=== PATIENT | female | born 1985 ===

== ENCOUNTER 2025-04-20 11:21 | Outpatient (REF) | payer SELFPAY ==
--- OUTSIDE RECORDS SUMMARY | 2025-04-20 14:39 | XMS_ITS | Encounter Summary ---
Author Organization [employer] Address [address] [place] [address] Care Team Providers Care Evp General Counsel Name Role Phone Unavailable Primary Care Provider Unavailabl e Reason for Visit * Reason Onset Date Comments CHARTPREP 04/17/2025 Encounter Details Date Type Department Care Team ([facility] st Contact Info) Description 04/17/2025 Telephone [facility] MED[facility] [address] [place] [address] Kameron Sharp MA CHARTPREP Social History Tobacco Use Types Packs/Day Years Used Date Smoking Tobacco: Never Passive Smoke Exposure: Never Smokeless Tobacco: Never Alcohol Use Standard Drinks/Week Comments Yes 0 (1 standard drink = 0.6 oz pur e alcohol) Overall Financial Resource Strain (CARDIA) Answe r Date Recorded How hard is it for you to pa y for the very basics like food, housing, medical care, and heating? Not hard at all 04/06/2023 Alcohol Answer Date Recorded How often do you have a drink containing alcohol ? 2 03/20/2025 How many drinks containing a lcohol do you have on a typical day when you are drinking? 1 03/20/2025 How often do you have six or more drinks on one occasion? 0 03/20/2025 Depression Answer Date Recorded Patient Health Questionnaire-9 Score 2 03/20/2025 Patient Health Questionnaire-9 Score 2 03/20/2025 Last PHQ-9: Questionnaire Data Not on file 0 03/20/2025 Housing Stability Answer Date Recorded What is your housing situation today? I have [facility] 03/20/[address] you li ve. Do you have problems with any of the following? None of the above 03/20/2025 Food Insecurity Answer Date Recorded Within the past 12 months, y ou worried that your food would run out before you got money to buy more: Never True 03/20/2025 Within the past 12 months,th e food you bought just didn't last and you didn't have enough money to get more: Never True 07/2025 Transportation Answer Date Recorded In the past 12 months, has l ack of transportation kept you from medical appts, meetings, work or from getting things needed for daily living? I am not sure 03/20/2025 Intimate Partner Violence Answer Date R ecorded Within the last year, have y ou been afraid of your partner or ex-partner? 2 04/06/2023 Within the last year, have y ou been humiliated or emotionally abused in other ways by your partner or ex-partner? 2 04/06/2023 Physically Abused Not on file 04/06/2023 Sexually Abused Not on file 04/06/2023 Utilities Answer Date Recorded In the past 12 months, has t he electric, gas, oil or water company threatened to shut off services in your home? 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 Not on file Not on file documented as of this encounter Miscellaneous Notes * Telephone Encounter - Kameron Sharp MA - 04/17/2025 10:10 AM EDT Chart Prep Labs: done 12/28/23 Lab order Images: done Referrals: eye care order with unknown date Vaccines due: Covid, Flu, and HPV Screenings: not applicable Overdue care gaps: Oral health screening documented in this encounter Plan of Treatment Not on file documented as of this encounter Visit Diagnoses Not on filedocumented in this encounter Additional Health Concerns Assessment Noted Time PHQ-9 Depression Total Score: 2 03/20/20 25 10:52 AM EDT documented as of this encounter
[2025-04-20 15:32] LABS: Bacterial Vaginosis PCR NEGATIVE (Negative); Candida Group PCR NOT DETECTED (Not Detect); Candida glab krusei PCR NOT DETECTED (Not Detect); Trichomonas vaginalis PCR NOT DETECTED (Not Detect)
[2025-04-20 16:04] LABS: CT PCR NOT DETECTED (Not Detect.); NG PCR NOT DETECTED (Not Detect.)
== END 2025-04-20 11:22 | disposition home or self-care (01) ==
LOC: HO.LNP 11:21
PROVIDERS: Visit Provider Nurse Practitioner
DX: Z11.3 Encounter for screening for infections with a predominantly sexual mode of transmission (principal); Z11.8 Encounter for screening for other infectious and parasitic diseases; N89.8 Other specified noninflammatory disorders of vagina
CPT/HCPCS: 81515; 87491; 87591

== ENCOUNTER 2025-08-19 15:28 | Outpatient (REF) | payer MEDICAID, SELFPAY ==
--- NOTE | ~2025-08-19 | US_ITS ---
EXAMINATION: US PELVIS CLINICAL INFORMATION: Amenorrhea COMPARISON: None available. TECHNIQUE: Ultrasound of the pelvis is performed using both transabdominal and transvaginal transducers along with Doppler. Transvaginal imaging is performed due to inadequate visualization transabdominally. FINDINGS: Uterus: The uterus is anteflexed and measures 7.7 x 3.4 x 5.2 cm. The double wall endometrial thickness is 3 mm. The uterus is smooth in contour and has normal myometrial echogenicity. No visible fibroid. Adnexa: Both ovaries are visualized. There is normal color flow to the adnexa. There is no ovarian torsion. There is no pelvic ascites or fluid collection. Right ovary measures 4.2 x 2.0 x 2.4 cm. Left ovary measures 5.3 x 2.0 x 2.3 cm. On transabdominal imaging, there is a 9 mm echogenic focus without posterior acoustic shadowing or enhancement. It likely represents small fatty lesion such as a dermoid. US/US pelvic and transvaginal IMPRESSION: Unremarkable pelvic ultrasound. Probable 9 mm dermoid of the left ovary. Electronically signed by: Bryant Vicente MD 08/19/2025 04:42 PM EST
--- OUTSIDE RECORDS SUMMARY | 2025-08-20 00:08 | XMS_ITS | Clinical Summary ---
Author Organization [employer] Address [address] [place] [address] [address] [place] [address] Care Team Providers Care Adjunct Political Science Instructor Name Role Phone Essence Ornelas NP Primary Care Provider [phone] Allergies Active Allergy Reactions Criticality Noted Date Comments Pineapple Swelling High 03/20/2025 Mouth and generalized swelling. 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 Patient reports previous diagnosis of Polycystic ovarian syndrome which could be possible etiology. -Discussed obtaining pelvic ultrasound but deferred due to financial concerns; will place orders if patient reconsiders. - Advised to monitor menstrual cycles; if amenorrhea persists for 2-3 months, will consider progesterone therapy to prevent endometrial hyperplasia. -Advised follow-up in 4 months or sooner if menstrual irregularity recurs. Orders: Us Pelvis complete; Future US Pelvis Transvaginal; Future TSH W/Reflex to FT4; Future FSH; Future Prolactin; Future LH; Future Assessment & Plan (05/15/2025 12:53 PM EDT): -likely due to PCOS -scheduled follow-up for further discussion due to time constraint Encounters Date Type Department Care Team Description 07/30/2025 Telephone [facility] MEDICINE [address] [place] [address] Essence Ornelas NP October recall 06/24/2025 3:15 PM EDT Office Visit [facility] [address] [place] [address] Essence Ornelas NP Overweight (Primary Dx); Lump on neck; Secondary amenorrhea; Dietary counseling; Exercise counseling 06/24/2025 Travel 06/23/2025 Telephone [facility] MED[facility]INE [address] [place] [phone] Essence Ornelas NP Chartprep from Last 3 Months Immunizations Immunization Administration Dates Next Due Influenza injectable quadrivalent preservative f ree 12/05/2023,06/29/2022 Tdap 12/05/2023 Family History Medical History Relation Name Comments Arrhythmia Maternal Grandmother Diabetes Maternal Grandmother Hypertension Maternal Grandmother Brain cancer Mother Diabetes Mother Diabetes type II Mother's Sister Hypertension Mother's Sister Cancer Neg Hx Relation Name Status Comments Maternal Grandmother Mother Mother's Sister Social History Tobacco Use Types Packs/Day Years Used Date Smoking Tobacco: Never Passive Smoke Exposure: Never Smokeless Tobacco: Never Tobacco Cessation:Counseling Given: Not Answered Alcohol Use Standard Drinks/Week Comments Yes 0 [...] 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 Not on file Not on file Last Filed Vital Signs Vital Sign Reading Time Taken Comments Blood Pressure 120/82 06/24/2025 3:17 PM EDT Pulse 90 06/24/2025 3:17 PM EDT Temperature 36.9 C (98.4 F) 06/24/2025 3:17 PM EDT Respiratory Rate 22 06/24/2025 3:17 PM EDT Oxygen Saturation 99% 06/24/2025 3:17 PM EDT Inhaled Oxygen Concentration - - Weight 82.2 kg (181 lb 3.2 oz) 06/24/2025 3:17 P M EDT Height 167.6 cm (5' 6 ) 06/24/2025 3:17 PM EDT Body Mass Index 29.25 06/24/2025 3:17 PM EDT Plan of Treatment Upcoming Encounters Date Type Department Care Team (Late st Contact Info) Description 10/22/2025 9:30 AM EST Office Visit [facility]OM[facility] [address] [place], [place] [phone] Mary Carpenter, OD [address] [place] [address] 10/28/2025 3:15 PM EST Office Visit [facility] MEDICINE [address] [place] [address] Essence Ornelas NP [address] [place], [place] [phone] Health Maintenance Due Date Last Done Comments HIV Screening 1985 Family Planning (PISQ) 2002 HPV Vaccines (1 - 3-dose series) 2002 Hepatitis C Screening 2005 COVID-19 Vaccine (2 - 2024-2 6 season) 2025 09/17/2022 Influenza Vaccine (#1) 2025 , 06/29/2022 Alcohol/Substance Use Screening 03/20/2026 03/20/2025 Depression Screening 03/20/2026 03/20/2025, 03/20/2025 Disability Screening 03/20/2026 03/20/2025 SDOH Screening 03/20/2026 03/20/2025 Tobacco Screening 03/20/2026 03/20/2025 Cervical Cancer Screening 08/01/2027 HPV/Cotest 08/01/2027 07/25/2022 Pap Smear 08/01/2027 08/01/2022, 07/25/2022, 07/25/2022 DTaP/Tdap/Td Vaccines (2 - T d or Tdap) 12/04/2033 12/05/2023 Zoster Vaccines (1 of 2) 2037 RSV Patients and Patients Aged 60 years or older (1 - 1-dose 75+ series) 2062 HIB Vaccines Aged Out No longer eligi ble based on patient's age to complete this topic Hepatitis A Vaccines Aged Out No long er eligible based on patient's age to complete this topic Hepatitis B Vaccines Discontinued IPV Vaccines Aged Out No longer eligi ble based on patient's age to complete this topic Meningococcal B Vaccine Aged Out No l onger eligible based on patient's age to complete this topic Meningococcal Vaccine Aged Out No jerica mir eligible based on patient's age to complete this topic Pneumococcal Vaccine: Pediatrics (0 to 5 Years) and At-Risk Patients (6 to 49) Years Aged Out No longer eligible based on patient's age to complete this topic RSV under 20 months Aged Out No longe r eligible based on patient's age to complete this topic Rotavirus Vaccines Aged Out No longer eligible based on patient's age to complete this topic Procedures Procedure Name Priority Date/Time Associated Diagnosis Comments US PELVIS TRANSVAGINAL Routine 08/19/2025 4:03 PM EST Secondary amenorrhea PAP SMEAR Routine 08/01/2022 12:00 AM EST THINPREP IMAGING PAP AND HPV MRNA E6/E7 WITH REFLEX TO HPV 16,18/45 Routine 07/25/2022 12:00 AM EST from Last 3 Months or Most Recently Relevant to Health Maintenance Results * US Pelvis Transvaginal (08/19/2025 4:03 PM EST) Anatomical Region Laterality Modality Pelvis Ultrasound 08/19/2025 4:03 PM EST Narrative 08/19/2025 4:44 PM EST [place] [id number] Ultrasound Report Signed Patient: Gray Moreland MR#: [id number] 63 : 1985 Acct:[id number] Age/Sex: 40 / F ADM Date: 08/19/25 Loc: .[place] Attending Dr: Essence Ornelas Ordering Physician: Essence Ornelas Date of Service: 08/19/25 Procedure(s): US pelvic and transvaginal Accession Number(s): [id number] cc: Essence Ornelas Reason for Exam: amenorrhea EXAMINATION: US PELVIS CLINICAL INFORMATION: Amenorrhea COMPARISON: None available. TECHNIQUE: Ultrasound of the pelvis is performed using both transabdominal and transvaginal transducers along with Doppler. Transvaginal imaging is performed due to inadequate visualization transabdominally. FINDINGS: Uterus: The uterus is anteflexed and measures 7.7 x 3.4 x 5.2 cm. The double wall endometrial thickness is 3 mm. The uterus is smooth in contour and has normal myometrial echogenicity. No visible fibroid. Adnexa: Both ovaries are visualized. There is normal color flow to the adnexa. There is no ovarian torsion. There is no pelvic ascites or fluid collection. Right ovary measures 4.2 x 2.0 x 2.4 cm. Left ovary measures 5.3 x 2.0 x 2.3 cm. On transabdominal imaging, there is a 9 mm echogenic focus without posterior acoustic shadowing or enhancement. It likely represents small fatty lesion such as a dermoid. US/US pelvic and transvaginal IMPRESSION: Unremarkable pelvic ultrasound. Probable 9 mm dermoid of the left ovary. Electronically signed by: Bryant Vicente MD 08/19/2025 04:42 PM [facility] Dictated By: Bryant Vicente MD Signed By: <Electronically signed by Bryant Vicente MD in [place]> 08/19/25 1642 DD/ 1603 TD/TT: 08/19/25 1611 General Operations Manager: Procedure Note Donotuseinterpreter, Image - 08/19/2025 [place] [address] Ultrasound Report Signed Patient: Gray Moreland TMR#: [id number] 63 : 1985Acct:[id number] Age/Sex: 40 / FADM Date: 08/19/25 Loc: .[place] Attending Dr: Essence Ornelas Ordering Physician: Essence Ornelas Date of Service: 08/19/25 Procedure(s): US pelvic and transvaginal Accession Number(s): [id number] cc: Essence Ornelas Reason for Exam: amenorrhea EXAMINATION: US PELVIS CLINICAL INFORMATION: Amenorrhea COMPARISON: None available. TECHNIQUE: Ultrasound of the pelvis is performed using both transabdominal and transvaginal transducers along with Doppler. Transvaginal imaging is performed due to inadequate visualization transabdominally. FINDINGS: Uterus: The uterus is anteflexed and measures 7.7 x 3.4 x 5.2 cm. The double wall endometrial thickness is 3 mm. The uterus is smooth in contour and has normal myometrial echogenicity. No visible fibroid. Adnexa: Both ovaries are visualized. There is normal color flow to the adnexa. There is no ovarian torsion. There is no pelvic ascites or fluid collection. Right ovary measures 4.2 x 2.0 x 2.4 cm. Left ovary measures 5.3 x 2.0 x 2.3 cm. On transabdominal imaging, there is a 9 mm echogenic focus without posterior acoustic shadowing or enhancement. It likely represents small fatty lesion such as a dermoid. US/US pelvic and transvaginal IMPRESSION: Unremarkable pelvic ultrasound. Probable 9 mm dermoid of the left ovary. Electronically signed by: Bryant Vicente MD 08/19/2025 04:42 PM EST RP Dictated By: Bryant Vicente MD Signed By: <Electronically signed by Bryant Vicente MD in OV> 08/19/25 1642 DD/ 1603 TD/TT: 08/19/25 1611 General Operations Manager: Essence Ornelas NP IMG US PROCEDURES Final Result * Pap Smear (08/01/2022 12:00 AM EST) Swab Historical Provider LAB CYTOLOGY ORDERABLES F inal Result [address], [place] [address] * THINPREP TIS PAP AND HPV mRNA E6/E7 REFLEX HPV 16,18/45 (07/25/2022 12:00 AM EST) Interpretation/Res ult: CONVERTED [facility]GACY LAB[facility] Comment:Negative for intraep ithelial lesion or malignancy. COMMENT CONVERTED [facility]GAC[facility] LAB[facility] Comment: This Pap test has been evaluated with computer assisted technology. Prev. BX: CONVERTED [facility]GACY LABS Comment:NONE GIVEN Statement Of Adequacy: CONVERTED [facility]GACY [facility] Comment: Satisfactory for evaluation. Endocervical/transformation zone component present. COMMENT CONVERTED LEGACY LABS Comment: EXPLANATORY NOTE: The Pap is a screening test for cervical cancer. It is not a diagnostic test and is subject to false negative and false positive results. It is most reliable when a satisfactory sample, regularly obtained, is submitted with relevant clinical findings and history, and when the Pap result is evaluated along with historic and current clinical information. HPV nRNA E6/E7 Not Detected Not Detected CONVERTED [facility]GACY LABS Comment: Methodology: Form Setter Helper-Mediated Amplification This assay detects E6/E7 viral messenger RNA (mRNA) from 14 high-risk HPV types (16,18,31,33,35,39,45,51,52,56,58,59,66,68). Cervical sources are required for HPV testing. If a vaginal source from a patient who has had a total hysterectomy with removal of cervix was submitted, please contact the testing laboratory for alternative testing options. For additional information, please refer to http://education.InfraSearch/faq/ZGQ732k4 (This link if provided for information/ educational purposes only.) Prev. PAP: CONVERTED [facility]GACY LABS Comment:NORMAL PER PT Clinical Information: CONVERTED [facility]GACY LABS Comment:NO HX ABNL PAPS Infection CONVERTED [facility]GAC[facility] Comment: Shift in vaginal eddie suggestive of bacterial vaginosis. SOURCE: CONVERTED [facility]GACY LABS Comment:Cervix LMP: CONVERTED [facility]GACY LABS Comment:2 YEARS AGO Supervisor Glycerin: ALEJANDRO MONROY [facility]S Comment: ALS, CT(ASCP) CT screening location: [address] [address] 07/25/2022 Tiffanie Frost CNM LAB PATHOLOGY ORDERABLES Final R esult CONVERTED LEGACY LABS from Last 3 Months or Most Recently Relevant to Health Maintenance Insurance [employer] [facility], [facility] [address] [place] [address] Care Teams Adjunct Political Science Instructor Relationship Specialty Start Date End Date Essence Ornelas NP [address] [place] [id number] PCP - General Family Medicine 04/29/25
== END 2025-08-19 15:29 | disposition home or self-care (01) ==
LOC: HO.US 15:28
PROVIDERS: Visit Provider Nurse Practitioner
DX: N91.1 Secondary amenorrhea (principal)
CPT/HCPCS: 76830; 76856

== ENCOUNTER → 2025-08-19 15:33 | Outpatient (BNV) | payer MEDICAID, SELFPAY | PROVIDERS: Visit Provider Radiology Diagnostic Radiology | DX: N83.292 Other ovarian cyst, left side (principal); N91.2 Amenorrhea, unspecified | CPT/HCPCS: 76830; 76856 ==